=== PATIENT | male | born 1970 | race Caucasian/White ===

== ENCOUNTER → 2017-05-01 | Outpatient (CLI) | payer OTHER ==
[2017-05-01 11:42] LABS: BARBITURATES NEG (NEG); BENZODIAZEPINES NEG (NEG); CANNABINOIDS POS (NEG); COCAINE NEG (NEG); METHADONE NEG (NEG); OPIATES NEG (NEG); PHENCYCLIDINE NEG (NEG)
[2017-05-01 11:53] LABS: ALBUMIN 3.9 g/dL (3.4-5.0); ALBUMIN/GLOBULIN RATIO 0.9 (1.0-1.7); CALCIUM 9.1 mg/dL (8.5-10.1); CREATININE 0.9 mg/dL (0.7-1.3); GFR 90.4; POTASSIUM 4.1 mmol/L (3.5-5.1); TOTAL BILIRUBIN 0.6 mg/dL (0.2-1.0); TOTAL PROTEIN 8.2 g/dL (6.4-8.2)
== END | disposition home or self-care (01) ==
LOC: LAB 11:14
PROVIDERS: ATTEND Psychiatry & Neurology Neurology
DX: R20.2 Paresthesia of skin (principal)
CPT/HCPCS: 36415; 80053; 80307; 82550; 82607; 84443; G0479

== ENCOUNTER → 2017-05-09 | Day surgery (SDC) | payer OTHER ==
[~2017-05-09] MED LIST: ATOR20TA58 PO; BUPR150T6 PO; HYDROmorphone 2 MG/ML VIAL IV PRN; IV RINGERS,LACTATED 1000ML 1,000 ML IV SCH; LIDOCAINE 1% 1 ML SYRINGE. ID PRN; LIDOCAINE 2% PF Vial for OR 5 ML VIAL. ONE; MORPHINE SULFATE 4 MG/ML DISP.SYRIN. IV PRN; ONDANSETRON PF 4 MG/2 ML VIAL. IV PRN; PRAZ2CAP2 PO; PROCHLORPERAZINE 10 MG/2 ML VIAL. IV PRN; PROPOFOL 40 ML IV ONE; QUET100T4 PO; RANI150T2 PO; fentaNYL PF VIAL 100 MCG/2 ML VIAL IV PRN
[2017-05-09 14:20] VITALS: BP 97/63
--- NOTE | 2017-05-10 13:34 | PATHOLOGY ---
PATHOLOGY REPORT * * * * * * * * FINAL DIAGNOSIS: Colon biopsy, splenic flexure polyp: - Tubular adenoma. COMMENT: There is no high-grade dysplasia or evidence of malignancy. (JPM:; 05/09/2017) REPORT ELECTRONICALLY SIGNED BY: Jose Jones M.D. DATE/TIME: 05/10/2017 13:34 * * * * * * * * GROSS PATHOLOGY: Received in formalin labeled "Luciana Quezada, splenic flexure polyp," are five segments of taylor soft tissue measuring 1.0 x 0.8 x 0.1 cm in aggregate dimensions and ranging from 0.2 to 0.6 cm in maximum dimension. The specimen is submitted entirely in cassette A1. (CAA; 05/09/2017) INITIAL CPT CODE(S): A; 05673 Professional services performed by [facility] [place] [address] Technical services performed by [facility] at [address] [place] [address]. SPECIMEN(S) RECEIVED: A.Splenic flexure polyp CLINICAL HISTORY: Screening, nausea, rectal bleed PATIENT: LUCIANA QUEZADA /AGE: 502/14/1970 (Age: 47) PATIENT #: [id number] ALT CASE #: SPECIMEN COLLECTION DATE: 05/09/2017 SPECIMEN RECEIVED DATE: 05/09/2017 [facility] - [address] [place] [address] - PHONE: [phone] * * * END OF REPORT * * *
== END | disposition home or self-care (01) ==
LOC: ENDOS 11:11
PROVIDERS: ATTEND Internal Medicine Gastroenterology
DX: D12.3 Benign neoplasm of transverse colon (principal); K64.0 First degree hemorrhoids; K29.50 Unspecified chronic gastritis without bleeding; F41.9 Anxiety disorder, unspecified; F32.9 Major depressive disorder, single episode, unspecified; E78.00 Pure hypercholesterolemia, unspecified; Z72.89 Other problems related to lifestyle; Z72.0 Tobacco use
CPT/HCPCS: 43235; 45385; 88305; J2001; J2704

== ENCOUNTER 2019-09-16 16:03 | Emergency (ER) | payer SELFPAY ==
[~2019-09-16] VITALS: Ht 180.3 cm; Wt 90.7 kg
[~2019-09-16 16:03] MED LIST changes: -HYDROmorphone 2 MG/ML VIAL IV PRN; -IV RINGERS,LACTATED 1000ML 1,000 ML IV SCH; -LIDOCAINE 1% 1 ML SYRINGE. ID PRN; -LIDOCAINE 2% PF Vial for OR 5 ML VIAL. ONE; -MORPHINE SULFATE 4 MG/ML DISP.SYRIN. IV PRN; -ONDANSETRON PF 4 MG/2 ML VIAL. IV PRN; -PROCHLORPERAZINE 10 MG/2 ML VIAL. IV PRN; -PROPOFOL 40 ML IV ONE; -fentaNYL PF VIAL 100 MCG/2 ML VIAL IV PRN
[2019-09-16 16:36] VITALS: BP 126/78
[2019-09-16] MEDS ORDERED: LIDOCAINE 1%/EPI 1:100,000 20 ML VIAL. SQ ONE (16:45)
[2019-09-16] MEDS ORDERED: NEOMY/BACITR/POLYMYXIN OINT PACKET. TP ONE (16:45)
[2019-09-16] MEDS ORDERED: CEPH500C PO (17:21)
--- NOTE | 2019-09-16 17:22 | PHYS DOC ---
Past Medical History Past Medical History: Schizophrenia Past Surgical History: Other Additional Past Surgical Histo: CARPAL TUNNEL, TOENAIL EXCISION, POLYP REMOVAL Alcohol Use: None Drug Use: Marijuana Adult General Chief Complaint Chief Complaint: LACERATION/AVULSION [facility] HPI Patient is a 49 year old male who presents to the emergency department with complaints of a laceration to the palm of his left hand. Patient states that he was using a box knife to cut some new carpet when he accidentally cut his thumb. He states his last tetanus shot was less than 5 years ago. The patient denies any numbness, tingling, or decreased range of motion of the affected thumb. He currently denies any pain. Patient states he has a history of schizophrenia and has been off of his medications for the last 2 months. Patient denies any auditory or visual hallucinations, he denies any suicidal thoughts or homicidal ideations. All other ROS is neg unless otherwise noted in HPI. Review of Systems Review of Systems See Above Current Medications Current Medications Current Medications Medications (Trade) Dose Ordered Sig/Gladis Start Time Stop Time Status Last Admin Dose Admin Lidocaine/ Epinephrine (LIDOCAINE 1%-EPI 1:100,000 Multi-Dose) 20 ml 1X ONCE 09/16/19 16:45 09/16/19 16:46 DC 09/16/19 16:53 20 ML Neomycin/ Polymyxin/ Bacitracin (Triple Antibiotic Ointment) 1 pkt 1X ONCE 09/16/19 16:45 09/16/19 16:46 DC Allergies Allergies Allergies Coded Allergies Type Severity Reaction Last Updated Verified No Known Drug Allergies 05/09/17 No Physical Exam Physical Exam See Above Constitutional: Well developed, well nourished, no acute distress, non-toxic appearance. [] HENT: Normocephalic, atraumatic, bilateral external ears normal, nose normal. [] Eyes: PERRLA, EOMI, conjunctiva normal, no discharge. [] Neck: Normal range of motion,no stridor. [] Cardiovascular:Heart rate regular rhythm Lungs & Thorax: Respirations even and unlabored, no retractions, no respiratory distress Skin: Warm, dry, no erythema, no rash; 5 cm laceration noted to the palmar surface at the base of the left thumb, no active bleeding, no visible foreign body. [] Extremities: L thumb: No tenderness, no cyanosis, no clubbing, ROM intact, no edema, full extension, full flexion. [] Neurologic: Alert and oriented X 3, no focal deficits noted. [] Psychologic: Affect normal, judgement normal, mood normal. [] Current Patient Data Vital Signs Vital Signs Date Time Temp Pulse Resp B/P (MAP) Pulse Ox O2 Delivery O2 Flow Rate FiO2 09/16/19 16:36 98.2 98 16 126/78 (94) 97 Room Air 98.2 EKG EKG [] Radiology/Procedures Radiology/Procedures Laceration Repair by me: Anesthesia: 1% lidocaine with epi locally Location: Left palm Tendon/Joint/Nerves: No injury Foreign body: None detected after copious irrigation and exploration with surgical scrub and and asked Technique: 7 Simple Interrupted Sutures with 4-0 Ethilon Complexity: No subcutaneous sutures/mucosal repair/edge excision Post Closure Length: 5 cm Patient's bleeding was easily controlled in the department and there is no indication of anemia. No evidence of compartment syndrome, neurologic injury, vascular injury, open joint, tendon laceration, or foreign body. Patient is appropriate for outpatient follow up. Scar minimization instructions given.[] Course & Med Decision Making Course & Med Decision Making Pertinent Labs and Imaging studies reviewed. (See chart for details) [] Dragon Disclaimer Dragon Disclaimer This electronic medical record was generated, in whole or in part, using a voice recognition dictation system. Departure Departure Impression: Primary Impression: Laceration of left palm without complication Disposition: 01 HOME, SELF-CARE Condition: STABLE Referrals: NO PCP (PCP) Patient Instructions: Laceration Care, Adult, [id number] Additional Instructions: Fill the prescription and use as directed. Keep the area clean and dry. You may take Tylenol or ibuprofen as needed for pain. Keep the dressing that was placed today on for 24 hours then change the dressing twice a day and apply antibiotic ointment to the area. Follow-up with your primary care doctor, or return to the emergency room in 10-14 days to have the sutures removed, sooner if you develop signs of infection including: redness, warmth, drainage, or a fever. Scripts Cephalexin (CEPHALEXIN) 500 Mg Capsule 1 CAP PO TID for 7 Days, #21 CAP 0 Refills Prov: EMILY JANE APRN 09/16/19 Problem Qualifiers Primary Impression: Laceration of left palm without complication Encounter type: initial encounter Qualified Codes: S61.412A - Laceration without foreign body of left hand, initial encounter EMILY JANE CAR VARNISHER Sep 16, 2019 17:21
== END 2019-09-16 17:25 | disposition home or self-care (01) ==
LOC: ER 16:03
DX: S61.012A Laceration without foreign body of left thumb without damage to nail, initial encounter (principal); F20.9 Schizophrenia, unspecified; F12.90 Cannabis use, unspecified, uncomplicated; Z98.890 Other specified postprocedural states; W26.0XXA Contact with knife, initial encounter; Y93.89 Activity, other specified; Y92.89 Other specified places as the place of occurrence of the external cause; Y99.8 Other external cause status
CPT/HCPCS: 12002; 99283; J3490

== ENCOUNTER 2022-02-05 14:18 | Emergency (ER) | payer OTHER ==
[~2022-02-05] VITALS: Ht 177.8 cm; Wt 98.1 kg
[~2022-02-05 14:18] MED LIST changes: +BUPR150T21 PO; -BUPR150T6 PO; +CEPH500C PO
[2022-02-05 14:20] VITALS: BP 128/86
[2022-02-05] MEDS ORDERED: TRAM50TA PO ×2 (15:00→15:51)
[2022-02-05] MEDS ORDERED: AMOXICILLIN/K CLAV 875/125MG TABLET. PO ONE (15:00)
[2022-02-05] MEDS ORDERED: AMOX1TAB61 PO ×2 (15:00→15:51)
[2022-02-05] MEDS ORDERED: CHLO118L3 MM ×2 (15:00→15:51)
[2022-02-05] MEDS ORDERED: traMADol 50 MG TABLET PO ONE (15:00)
--- NOTE | 2022-02-05 15:02 | PHYS DOC ---
Past Medical History Past Medical History: Schizophrenia Past Surgical History: Other Additional Past Surgical Histo: CARPAL TUNNEL, TOENAIL EXCISION, POLYP REMOVAL Smoking Status: Current Every Day Smoker Alcohol Use: None Drug Use: Marijuana General Adult EDM: Chief Complaint: DENTAL PROBLEM HPI: HPI: Patient is a 51 year old male who presents with left-sided dental pain. Patient states the pain has been ongoing for a number of weeks, but last week he started noticing his cheek got swollen. Over the past week, symptoms have worsened. Patient denies fever, chills, generalized weakness, chest pain, palpitations. Review of Systems: Review of Systems: ROS negative or noncontributory except as mentioned in HPI. Heart Score: C/O Chest Pain: No Current Medications: Current Medications Medications (Trade) Dose Ordered Sig/Gladis Start Time Stop Time Status Last Admin Dose Admin Amoxicillin/ Clavulanate Potassium (Augmentin 875/ 125mg) 1 tab 1X ONCE 02/05/22 15:00 02/05/22 15:01 Tramadol HCl (Ultram) 50 mg 1X ONCE 02/05/22 15:00 02/05/22 15:01 Allergies: Allergies: Allergies Coded Allergies Type Severity Reaction Last Updated Verified No Known Drug Allergies 05/09/17 No Physical Exam: PE: Constitutional: Well developed, well nourished, no acute distress, non-toxic appearance. HENT: Normocephalic, atraumatic, bilateral external ears normal, oropharynx moist, markedly poor dentition with several caries and missing teeth, abscess noted to the right upper oral cavity without active drainage, nose normal. Eyes: EOMI, conjunctiva normal, no discharge no periocular swelling or pain on eye movement. Neck: Normal range of motion, no stridor. Skin: Warm, dry, no erythema, no rash. Extremities: No cyanosis, no clubbing, ROM intact, no edema. Neurologic: Alert and oriented x4, normal motor function, normal sensory function, no focal deficits noted. Course & Med Decision Making: Course & Med Decision Making Pertinent Labs and Imaging studies reviewed. (See chart for details) Alisonon Disclaimer: Isabel Disclaimer: This electronic medical record was generated, in whole or in part, using a voice recognition dictation system. Departure Departure Impression: Primary Impression: Dental abscess Additional Impression: Poor dentition requiring referral to dentistry Disposition: 01 HOME / SELF CARE / HOMELESS Condition: STABLE Referrals: NO PCP (PCP) Patient Instructions: Dental Abscess, Dental Pain, [id number] Additional Instructions: As discussed, the prescriptions provided to you today are temporary measures. You will need to see a dentist for definitive management. Please use the lists provided to make an appointment. EMERGENCY DEPARTMENT GENERAL DISCHARGE INSTRUCTIONS Thank you for coming to [facility] Emergency Department (ED) today and trusting us with you care. We trust that you had a positive experience in our Emergency Department. If you wish to speak to the department management, you may call the director at . YOUR FOLLOW UP INSTRUCTIONS ARE FOLLOWS: 1. Follow up with your primary care doctor. If you do not have a primary doctor, please ask for a resource list of physicians or clinics that may be able to assist you with follow up care. 2. The emergency provider has interpreted your imaging studies, if any were ordered. The radiology medical imaging technician also reviewed them. If there is a change in the findings, you will be notified in 48 hours when at all possible. 3. If a lab test or culture has been done, your results will be reviewed and you will be notified if you need a change in treatment. 4. Follow instructions verbalized to you and refer to the printouts if needed. ADDITIONAL INSTRUCTIONS AND INFORMATION: 1. Your care today has been supervised by a physician who is specially trained in emergency care. Many problems require more than one evaluation for a complete diagnosis and treatment. We recommend that you schedule your follow up appointment as recommended to ensure complete treatment of you illness or injury. If you are unable to obtain follow up care and continue to have a pr oblem, or if your condition worsens, we recommend that you return to the ED. 2. We are not able to safely determine your condition over the phone nor are we able to give sound medical advice over the phone. For these safety reasons, if you call for medical advice we will ask you to come to the ED for further evaluation. 3. If you have any questions regarding these discharge instructions please call the ED at . SAFETY INFORMATION: In the interest of safety, wellness, and injury prevention; we encourage you to wear your seat belt, if you smoke; quite smoking, and we encourage family to use a protective helmet for bicycling and other sporting events that present an increased risk for head injury. IF YOUR SYMPTOMS WORSEN OR NEW SYMPTOMS DEVELOP, OR YOU HAVE CONCERNS ABOUT YOUR CONDITION; OR IF YOUR CONDITION WORSENS WHILE YOU ARE WAITING FOR YOUR FOLLOW UP APPOINTMENT; EITHER CONTACT YOUR PRIMARY CARE DOCTOR, THE PHYSICIAN WHOSE NAME AND NUMBER YOU WERE GIVEN, OR RETURN TO THE ED IMMEDIATELY. Scripts Amoxicillin/Potassium Clav (AUGMENTIN 875-125 TABLET) 1 Each Tablet 1 TAB PO BID for 10 Days, #19 TAB 0 Refills Prov: JUSTINA GOMEZ 02/05/22 Chlorhexidine Gluconate (CHLORHEXIDINE GLUCONATE) 118 Ml Liquid 1 LAURI MM DAILY, #237 ML 0 Refills Prov: JUSTINA GOMEZ 02/05/22 Tramadol Hcl (TRAMADOL HCL) 50 Mg Tablet 50 MG PO PRN Q6-8HRS PRN for PAIN, #20 TAB 0 Refills Prov: JUSTINA GOMEZ 02/05/22 JUSTINA GOMEZ February 05, 2022 15:01
== END 2022-02-05 15:52 | disposition home or self-care (01) ==
LOC: ER 14:18
DX: K04.7 Periapical abscess without sinus (principal); F20.9 Schizophrenia, unspecified; K00.7 Teething syndrome; F17.200 Nicotine dependence, unspecified, uncomplicated
CPT/HCPCS: 99283